=== PATIENT | female | born 1950 | race Two or more races ===

== ENCOUNTER 2018-01-17 08:20 | Outpatient (CLI) | payer OTHER | END 2018-01-17 08:23 | disposition home or self-care (01) | LOC: SONOGRAMA 08:20 | DX: E04.1 Nontoxic single thyroid nodule (principal) ==

== ENCOUNTER → 2019-01-04 | Outpatient (CLI) | payer OTHER | END | disposition home or self-care (01) | LOC: NUCLEAR 13:00 | DX: C73 Malignant neoplasm of thyroid gland (principal) | CPT/HCPCS: 79005; A9517 ==

== ENCOUNTER → 2019-01-09 | Outpatient (CLI) | payer OTHER | END | disposition home or self-care (01) | LOC: NUCLEAR 14:59 | DX: C73 Malignant neoplasm of thyroid gland (principal) ==